=== PATIENT | female | born 1970 | race Caucasian/White ===

== ENCOUNTER 2021-10-02 05:25 | Emergency (ER) | payer BC, OTHER ==
[~2021-10-02] VITALS: Ht 172.7 cm; Wt 70.3 kg
[2021-10-02] MEDS ORDERED: KETOROLAC TROMETH 60MG/2ML VIAL IM ONE (07:15)
[2021-10-02] MEDS ORDERED: IBUP800T27 PO (07:24)
[2021-10-02] MEDS ORDERED: PRED20TA2 PO (07:24)
[2021-10-02 07:41] VITALS: BP 130/58
== END 2021-10-02 07:50 | disposition home or self-care (01) ==
LOC: ER 05:25
DX: M54.41 Lumbago with sciatica, right side (principal)
CPT/HCPCS: 72100; 96372; 99283; J1885

== ENCOUNTER → 2021-10-10 | Emergency (ER) | payer SELFPAY ==
[~2021-10-10] VITALS: Ht 172.7 cm; Wt 70.3 kg
[~2021-10-10] MED LIST: AZIT1POW PO; IBUP800T27 PO; PRED20TA2 PO
[2021-10-10 12:45] VITALS: BP 100/53
== END | disposition home or self-care (01) ==
LOC: ER 11:49
DX: J20.9 Acute bronchitis, unspecified (principal); Z20.822 Contact with and (suspected) exposure to COVID-19; Z98.51 Tubal ligation status
CPT/HCPCS: 36415; 71046; 93005